=== PATIENT | female | born 1995 | race Caucasian/White ===

== ENCOUNTER 2023-09-26 16:52 | Emergency (ER) | payer OTHER ==
[~2023-09-26] VITALS: Ht 157.5 cm; Wt 76.0 kg
[2023-09-26 16:54] VITALS: TEMP 98.4; O2SAT 100
[2023-09-26] MEDS ORDERED: IBUP-2029 MT (18:08)
[2023-09-26 18:23] VITALS: BP 96/52; PULSE 71; RESP 16
[2023-09-26] MEDS: HYDROCODONE/ACETAMINOPHEN 5/325MG TABLET PO ONE (18:23)
== END 2023-09-26 18:20 | disposition home or self-care (01) ==
LOC: ER 16:52
DX: S92.902A Unspecified fracture of left foot, initial encounter for closed fracture (principal); S60.212A Contusion of left wrist, initial encounter; S60.211A Contusion of right wrist, initial encounter; W18.39XA Other fall on same level, initial encounter; Y93.89 Activity, other specified; Y92.89 Other specified places as the place of occurrence of the external cause; Y99.8 Other external cause status
CPT/HCPCS: 72040; 72070; 72100; 73110; 73610; 99284; Z7610